=== PATIENT | male | born 1950 | race Caucasian/White ===

== ENCOUNTER 2017-05-14 15:47 | Emergency (ER) | payer OTHER ==
[2017-05-14] MEDS ORDERED: TETANUS/DIPHTHERIA/PERTUSSIS 0.5 ML SYRINGE IM ONE ×2 (16:15→16:29)
--- NOTE | 2017-05-14 16:24 | ED Physician Documentation ---
History of Present Illness - Stated complaint Stated Complaint: LT FINGER LAC - Chief complaint Chief Complaint: Laceration - Additonal information Additional information: hx from pt healthy 66 male lac r index distal ulnar aspect avulsion with a turkey knife Review of Systems Skin: reports: Laceration (s) Neurologic: denies: Focal weakness, Numbness Endocrine: denies: Easy bruising / bleeding Immunocompromised: denies: Immunocompromised PD PAST MEDICAL HISTORY - Allergies Allergies/Adverse Reactions: Allergies Allergy/AdvReac Type Severity Reaction Status Date / Time No Known Drug Allergies Allergy Verified 05/14/17 16:01 PD ED PE NORMAL - Vitals Vital signs reviewed: Yes - Cardiac Cardiac: RRR - Respiratory Respiratory: No respiratory distress, Clear bilaterally - Extremities Extremities: Other (L hand index finger 0.5 X 1.5 cm region or avulsed and missing tissue, steady ozze no pulsatile, jy and tendon not affected, MSV intact , no FB) Results - Vitals Vitals: Vital Signs - 24 hr 05/14/17 15:58 Temperature 36.6 C Heart Rate 82 Respiratory 18 Rate Blood Pressure 138/87 H O2 Saturation 98 Oxygen O2 Source Room air Departure - Departure Clinical Impression: Finger avulsion Qualifiers: Encounter type: initial encounter Qualified Code(s): S61.209A - Unspecified open wound of unspecified finger without damage to nail, initial encounter Condition: Good Instructions: ED Laceration Amputation Finger Tip Open Tx Comments: Leave the dressing we put on until Thursday morning Then may removed - recommend soaking to remove the bottom layer After that antibiotic ointment and a bandaid should suffice until the wound heals over which will take about 2 weeks Ice and tylenol as needed for the pain. This wound is unlikely to become infected but return for increasing redness swelling pain or drainage
[2017-05-14 17:15] VITALS: BP 128/82
== END 2017-05-14 17:13 | disposition home or self-care (01) ==
LOC: ED 15:47
DX: S61.200A Unspecified open wound of right index finger without damage to nail, initial encounter (principal); W26.0XXA Contact with knife, initial encounter; Z23 Encounter for immunization
CPT/HCPCS: 90471; 99283